=== PATIENT | female | born 1945 | race Caucasian/White ===

== ENCOUNTER 2025-06-11 18:08 | Emergency (ER) | payer MEDICARE, BC ==
[2025-06-11] MEDS ORDERED: Ketorolac Tromethamine 30 MG (1 mL) VIAL ONE (21:37)
== END 2025-06-11 21:45 ==
LOC: ERS 18:08
DX: S01.01XA Laceration without foreign body of scalp, initial encounter (principal); W19.XXXA Unspecified fall, initial encounter; Y92.129 Unspecified place in nursing home as the place of occurrence of the external cause
CPT/HCPCS: 12001; 70450; 71045; 72125; 72170; 93005; 99284; J1885